=== PATIENT | male | born 1980 | race Caucasian/White ===

== ENCOUNTER 2017-10-15 17:02 | Emergency (ER) | payer SELFPAY ==
[~2017-10-15] VITALS: Ht 182.9 cm; Wt 95.8 kg
[2017-10-15 17:04] VITALS: BP 155/97
== END 2017-10-15 20:10 | disposition left against medical advice (07) ==
LOC: EME 17:02
DX: M54.5 Low back pain (principal); Z53.21 Procedure and treatment not carried out due to patient leaving prior to being seen by health care provider